=== PATIENT | male | born 1970 | race Two or more races ===

== ENCOUNTER → 2017-03-16 | Outpatient (CLI) | payer BC ==
--- NOTE | 2017-03-16 17:17 | PCVCIMAG ---
APPROVED REPORT Exam: Stress Echocardiogram Indication: Chest pain Patient Location: Echo lab Stress Nurse: Isabel Olivares RN Room #: 2 Status: routine Ht: 5 ft 10 in HR: 80 bpm BP: 144/96 mmHg Rhythm: NSR Medical History Previous Cardiac Procedures: NONE Pretest Chest Pain Characteristics: No chest pain Procedure The patient underwent an Exercise Stress Test using the Gaurav Protocol. Blood pressure, heart rate, and EKG were monitored. An Echocardiogram was performed by voip network technician in four stages in quad fashion. At peak stress, four selected images were obtained and placed side by side with resting images for comparison. Stress Test Details Stress Test: Exercise stress testing was performed using a Gaurav protocol. HR Resting HR: 80 bpmMax Heart Rate (APMHR): 173 bpm Max HR Achieved: 171 bpmTarget HR (85% APMHR): 147 bpm % of APMHR: 98 Recovery HR: 98 bpm HR response to stress: Normal HR response to stress BP Resting BP: 144/96 mmHg Max BP: 198/88 mmHg Recovery BP: 146/80 mmHg ECG Resting ECG: Sinus Rhythm Stress ECG: Sinus Rhythm ST Change: Upsloping ST depression, Non-ischemic, Normal Maximum ST Deviation: 0 mm Arrhythmia: Rare PVCs Recovery ECG: Sinus Rhythm Recovery ST Change: Non-ischemic Recovery ST Deviation: 0 mm Recovery Arrhythmia: None Clinical Reason for Termination: Maximal effort Stress Symptoms: chest discomfort-mild Exercise duration: 12 min sec Highest Stage Achieved: Stage 4: 4.2 mph at 16% grade. Exercise capacity: 13.4 METs Overall Exercise Capacity for Age: Excellent Angina Score: Non-Limiting Stress ECG Conclusion The patient exercised according to the Gaurav Protocol for 12:00 minutes, achieving a maximum work level of 13.4 METS. The resting heart rate of 77 bpm, bandar to a maximal level of 171 bpm. This value represents 98 % of the maximal, age-predicted heart rate. The resting blood pressure of 144/96 mmHg, bandar to a maximum blood pressure of 198/88mmHg. The exercise was stopped due to fatigue. Mcdonald Treadmill Score is 8.0 which is Low risk. Pre-Stress Echo The resting Echocardiogram showed normal left ventricular contractility with an estimated Ejection Fraction of about 55-60%. Normal wall motion in all segments on baseline images. Post-Stress Echo The stress Echocardiogram showed normal left ventricular contractility with an estimated Ejection Fraction of about 65-70%. Normal augmentation of wall motion in all segments on post stress images. Clinical No clinical or ECG evidence for ischemia. Conclusion Clinical Response: Non-ischemic Exercise Capacity: Superior Stress ECG Response: Non-ischemic Stress Echo Images: Non-ischemic No clinical, EKG or echocardiographic evidence for ischemia. Normal stress echocardiogram with maximal exercise stress. Normal stress echocardiogram with submaximal exercise stress. No prior study available for comparison. <Conclusion> No clinical, EKG or echocardiographic evidence for ischemia. Normal stress echocardiogram with maximal exercise stress. Normal stress echocardiogram with submaximal exercise stress.
== END | disposition home or self-care (01) ==
LOC: PCVCIMAG 16:10
PROVIDERS: ATTEND Internal Medicine
DX: I10 Essential (primary) hypertension (principal); R07.2 Precordial pain; R73.03 Prediabetes; R07.89 Other chest pain; Z79.899 Other long term (current) drug therapy
CPT/HCPCS: 93325; 93351; G0463